=== PATIENT | female | born 1965 | race Caucasian/White ===

== ENCOUNTER → 2017-01-01 | Outpatient (CLI) | payer BC ==
[~2017-01-01] MED LIST: CLC6 PO; DLC5 PO; ERYC250 PO; POLY335040 PO; PYRI60TA3 PO; RIFA550T2 PO; [UNRECOGNIZED DRUG - CODE] PO
--- NOTE | 2017-01-01 13:20 | MAMMOGRAPHY REPORT ---
BILATERAL DIGITAL SCREENING MAMMOGRAM TOMOSYNTHESIS WITH CAD: 01/01/2017 TECHNIQUE: Breast tomosynthesis in addition to standard 2D mammography was performed. Current study was also evaluated with a Computer Aided Detection (CAD) system. COMPARISON: Comparison is made to exams dated: 10/17/2015 mammogram, 10/17/2015 ultrasound, 09/01/2014 mammogram, 06/21/2013 mammogram, 04/06/2012 mammogram, and 04/06/2012 ultrasound - [facility]. BREAST COMPOSITION: The tissue of both breasts is extremely dense, which lowers the sensitivity of mammography. FINDINGS: No suspicious masses, calcifications, or areas of architectural distortion are noted in e ither breast. There has been no significant interval change compared to prior exams. The previously seen round circumscribed mass in the left superior posterior breast has decreased in size, and was shown to represent a benign cyst on the prior 2015 ultrasound exam. IMPRESSION: ACR BI-RADS CATEGORY 2: BENIGN There is no mammographic evidence of malignancy. A 1 year screening mammogram is recommended. The p atient will receive written notification of the results. Approximately 10% of breast cancers are not detected with mammography. A negative mammographic repor t should not delay biopsy if a clinically suggestive mass is present. Rosa Isela Ann M.D. ah/:01/01/2017 09:39:52 [employer] Att[employer]: Dilma DANIEL(Curtis)(M), [facility] letter sent: Normal 1/2 BI-RADS Code: ACR BI-RADS Category 2: Benign
== END | disposition home or self-care (01) ==
LOC: C.MAMM 08:54
PROVIDERS: ATTEND Family Medicine
DX: Z12.31 Encounter for screening mammogram for malignant neoplasm of breast (principal)

== ENCOUNTER → 2017-10-29 | Outpatient (CLI) | payer OTHER ==
--- NOTE | 2017-10-29 09:01 | DIAGNOSTIC IMAGING REPORT ---
BRAIN WITHOUT CONTRAST HISTORY: 52 years-old Female R51 New onset of headaches after age [id number] chronic headaches COMPARISON: None available TECHNIQUE: Multiplanar multisequence MRI of the brain was obtained without contrast FINDINGS: The large ilylt-rb-llze hob grinder localizer images demonstrate no gross abnormality. There is no restricted diffusion to suggest acute infarction. The midline structures including the corpus callosum, brainstem, optic chiasm, pituitary and pineal glands appear unremarkable on the sagittal T1 series. No cerebellar tonsillar herniation. Mild degenerative changes of the imaged cervical spine. There is no acute intracranial hemorrhage, midline shift or abnormal extra-axial collections, hydrocephalus or intracranial mass. No significant brain parenchymal signal amount is identified. The major flow voids at the level of the skull base appear patent. Mastoid air cells are clear. Paranasal sinuses also appear to be clear. The orbits, scalp, calvarium and soft tissues appear to be unremarkable. IMPRESSION: No acute intracranial abnormality identified. The above report was generated using voice recognition software. It may contain grammatical, syntax or spelling errors. Electronically signed by: Rich Feliz M.D. 10/29/2017 9:00 AM Dictated Date/Time: 10/29/2017 8:55 AM
== END | disposition home or self-care (01) ==
LOC: C.MRI 08:18
PROVIDERS: ATTEND Psychiatry & Neurology Neurology
DX: R51 Headache (principal)